=== PATIENT | female | born 1950 | race Caucasian/White ===

== ENCOUNTER 2022-10-04 07:55 | Day surgery (SDC) | payer MEDICARE ==
[~2022-10-04] VITALS: Ht 167.6 cm; Wt 83.9 kg
[2022-10-04 08:29] VITALS: BP 149/82
[2022-10-04] MEDS ORDERED: LIDOcaine 1% 30ml preserv. free vial SQ STA (08:36)
[2022-10-04] MEDS ORDERED: CALC600T22 PO (08:41)
[2022-10-04] MEDS ORDERED: VITA-268 PO (08:41)
[2022-10-04] MEDS ORDERED: CHOL10006 PO (08:41)
[2022-10-04] MEDS ORDERED: POTA8TAB69 PO (08:41)
[2022-10-04] MEDS ORDERED: ASCO500C17 PO (08:41)
[2022-10-04] MEDS ORDERED: EXEM25TA5 (08:41)
[2022-10-04] MEDS ORDERED: FURO-150 PO (08:41)
[2022-10-04 09:15] VITALS: BP 145/84
[2022-10-04 09:20] VITALS: BP 145/82
[2022-10-04 09:30] VITALS: BP 150/98
--- NOTE | 2022-10-04 09:33 | NUR ---
Pt sitting up in bed, drinking juice box. Pt denies pain, denies sob. DRSG to L posterior back is CD&I. No s/s of bleeding or infection.
[2022-10-04 09:45] VITALS: BP 146/90
[2022-10-04 10:07] LABS: GLUCOSE,BODY FLUID 103 MG/DL; LDH,BODY FLUID 105 U/L; TOTAL PROTEIN,BODY FLUID 2.8 G/DL
[2022-10-04 10:59] LABS: BF MESOTHELIAL CELLS MANY; BF RBC COUNT 3800 /CU MM; BF WBC COUNT 675 /CU MM (0-1000); BFAPPEAR CLOUDY; BFCOLOR AMBER; BFVOLUME 40 ML; LYMPHOCYTES,BODY FLUID 53 %; MONOCYTES,BODY FLUID 19 %; NEUTROPHILS,BODY FLUID 28 %
== END 2022-10-04 09:54 | disposition home or self-care (01) ==
LOC: SSTAY O 07:55
PROVIDERS: ATTEND Radiology Vascular & Interventional Radiology
DX: J90 Pleural effusion, not elsewhere classified (principal); Z79.899 Other long term (current) drug therapy; Z98.890 Other specified postprocedural states; Z88.0 Allergy status to penicillin
CPT/HCPCS: 32555; 82945; 83615; 84157; 87070; 89051; A6449